=== PATIENT | female | born 1955 | race Caucasian/White ===

== ENCOUNTER 2021-10-03 15:00 | Inpatient (IN) | payer SELFPAY ==
[~2021-10-03] VITALS: Ht 162.6 cm; Wt 88.9 kg
[2021-10-03 15:40] LABS: BASOPHILS % 0.2 % (0.0-2.0); EOSINOPHILS % 1.3 % (0.0-5.0); HEMATOCRIT. 31.1 % (36.0-48.0); LYMPHOCYTES % 9.4 % (20.0-50.0); MEAN CORPUSCULAR HEMOGLOBIN 27.4 pg (28.0-32.0); MEAN CORPUSCULAR VOLUME 85.1 fL (81.0-99.0); MEAN PLATELET VOLUME 8.7 fl (7.4-10.4); MONOCYTES % 6.2 % (2.0-8.0); NEUTROPHILS % 82.9 % (40.0-76.0); PLATELET 176 x1000/uL (130-400); RED BLOOD CELL COUNT 3.65 mill/uL (4.2-5.4); RED CELL DISTRIBUTION WIDTH 14.5 % (11.6-14.6)
[2021-10-03 15:47] LABS: CHLORIDE 117 mEq/L (98-107)
[2021-10-03 15:57] LABS: ETHANOL BLOOD < 10 mg/dL
[2021-10-03] MEDS ORDERED: ASPIRIN 325MG TABLET PO ONE (16:00)
[2021-10-03 20:20] VITALS: BP 172/62
[2021-10-03] MEDS ORDERED: BUME1TAB8 MT (20:53)
[2021-10-03] MEDS ORDERED: ISOS10TA2 MT (20:53)
[2021-10-03] MEDS ORDERED: LOSA25TA26 MT (20:53)
[2021-10-03] MEDS ORDERED: ASPI-1160 MT (20:53)
[2021-10-03] MEDS ORDERED: CHOL400D7 PO (20:53)
[2021-10-03] MEDS ORDERED: HYDR-4135 MT (20:53)
[2021-10-03] MEDS ORDERED: DEXTROSE 50% WATER 50ML SYRINGE IV PRN (22:15)
[2021-10-03 23:21] LABS: CLARITY URINE CLEAR (CLEAR); COLOR URINE YELLOW (YELLOW); KETONES URINE NEGATIVE (NEGATIVE); LEUKOCYTE ESTERASE URINE NEGATIVE (NEGATIVE); NITRITE URINE NEGATIVE (NEGATIVE); OCCULT BLOOD URINE NEGATIVE (NEGATIVE); PH URINE 5.5 (4.5-8.0); PROTEIN URINE 4+ (NEGATIVE); SPECIFIC GRAVITY URINE 1.014 (1.005-1.030); UROBILINOGEN URINE 0.2 E.U./dL (0.2-1.0)
[2021-10-03 23:36] LABS: *AMPHETAMINES SCREEN URINE NEGATIVE (NEGATIVE); *BARBITURATES SCREEN URINE NEGATIVE (NEGATIVE); *BENZODIAZEPINES SCREEN URINE NEGATIVE (NEGATIVE); *COCAINE SCREEN URINE NEGATIVE (NEGATIVE); CANNABINOID URINE SCREEN NEGATIVE (NEGATIVE); METHADONE URINE SCREEN NEGATIVE (NEGATIVE); OPIATES URINE SCREEN NEGATIVE (NEGATIVE); PHENCYCLIDINE URINE SCREEN NEGATIVE (NEGATIVE)
[2021-10-03 23:56] VITALS: BP_SYST 171; BP_SYST 93; BP_DIAS 56; BP_DIAS 62
[2021-10-04 03:33] VITALS: BP 190/69
[2021-10-04] MEDS: BLOOD SUGAR DIAGNOSTIC STRIP TEST SCH ×4 (06:34→20:37)
[2021-10-04] MEDS ORDERED: INSULIN LISPRO 100 UNITS/ML SUBCUT SCH (07:50)
[2021-10-04 08:00] VITALS: BP 136/39
[2021-10-04] MEDS: INSULIN LISPRO 100 UNITS/ML SUBCUT SCH ×4 (09:49→20:47)
[2021-10-04] MEDS: HYDRALAZINE HCL 50MG TABLET PO SCH (09:51)
[2021-10-04] MEDS: ISOSORBIDE DINITRATE 10MG TABLET PO SCH ×3 (09:51→16:36)
[2021-10-04] MEDS: ASPIRIN 81MG TABLET PO SCH (09:52)
[2021-10-04] MEDS: BUMETANIDE 1MG TABLET PO SCH ×2 (09:52→16:35)
[2021-10-04] MEDS: LOSARTAN POTASSIUM 25 MG TABLET PO SCH (09:52)
[2021-10-04 12:00] VITALS: BP 162/71
[2021-10-04 16:00] VITALS: BP 141/56
[2021-10-04 20:25] VITALS: BP 133/48
[2021-10-04] MEDS: ATORVASTATIN CALCIUM 40MG TABLET PO SCH (20:47)
[2021-10-05 00:22] VITALS: BP 142/59
[2021-10-05 04:10] VITALS: BP 153/52
[2021-10-05] MEDS: BLOOD SUGAR DIAGNOSTIC STRIP TEST SCH ×4 (06:20→21:12)
[2021-10-05 07:42] VITALS: BP 150/59
[2021-10-05] MEDS: HYDRALAZINE HCL 50MG TABLET PO SCH ×4 (08:30→21:10)
[2021-10-05] MEDS: ASPIRIN 81MG TABLET PO SCH (08:31)
[2021-10-05] MEDS: LOSARTAN POTASSIUM 25 MG TABLET PO SCH (08:31)
[2021-10-05] MEDS: BUMETANIDE 1MG TABLET PO SCH ×2 (08:31→16:57)
[2021-10-05] MEDS: ISOSORBIDE DINITRATE 10MG TABLET PO SCH ×3 (08:31→16:57)
[2021-10-05] MEDS: INSULIN LISPRO 100 UNITS/ML SUBCUT SCH ×4 (08:33→21:12)
[2021-10-05 12:25] VITALS: BP 142/53
[2021-10-05 16:03] VITALS: BP 133/85
[2021-10-05] MEDS: ENOXAPARIN 40MG/0.4ML SYR SUBCUT SCH (16:56)
[2021-10-05 20:00] VITALS: BP 123/45
[2021-10-05] MEDS: ATORVASTATIN CALCIUM 40MG TABLET PO SCH (21:09)
[2021-10-06] VITALS: BP 159/51
[2021-10-06 04:00] VITALS: BP 189/63
[2021-10-06] MEDS: HYDRALAZINE HCL 50MG TABLET PO SCH ×2 (05:17→13:37)
[2021-10-06] MEDS: BLOOD SUGAR DIAGNOSTIC STRIP TEST SCH ×3 (06:23→16:40)
[2021-10-06 08:20] VITALS: BP 146/91
[2021-10-06] MEDS: ISOSORBIDE DINITRATE 10MG TABLET PO SCH ×3 (08:42→16:14)
[2021-10-06] MEDS: ASPIRIN 81MG TABLET PO SCH (08:42)
[2021-10-06] MEDS: LOSARTAN POTASSIUM 25 MG TABLET PO SCH (08:42)
[2021-10-06] MEDS: BUMETANIDE 1MG TABLET PO SCH ×2 (08:43→16:14)
[2021-10-06] MEDS: INSULIN LISPRO 100 UNITS/ML SUBCUT SCH ×2 (08:44→13:42)
[2021-10-06 12:30] VITALS: BP 131/50
[2021-10-06 16:06] VITALS: BP 153/72
[2021-10-06] MEDS: ENOXAPARIN 40MG/0.4ML SYR SUBCUT SCH (16:15)
[2021-10-06 16:50] VITALS: BP 129/61
[2021-10-07] MEDS ORDERED: LOSARTAN POTASSIUM 50 MG TABLET PO SCH (09:00)
== END 2021-10-06 18:13 | disposition home or self-care (01) | DRG 45 ==
LOC: ER 15:00 → EDBEDREQ 16:50 → 6WST 18:14 → EDBEDREQ 18:19 → EDBEDREQTM 18:19 → EDBEDREQSVC 18:24
PROVIDERS: ADMIT Internal Medicine; ATTEND Internal Medicine
DX: I63.9 Cerebral infarction, unspecified (principal); I50.9 Heart failure, unspecified; E11.22 Type 2 diabetes mellitus with diabetic chronic kidney disease; I13.0 Hypertensive heart and chronic kidney disease with heart failure and stage 1 through stage 4 chronic kidney disease, or unspecified chronic kidney disease; G81.94 Hemiplegia, unspecified affecting left nondominant side; N18.9 Chronic kidney disease, unspecified; E78.5 Hyperlipidemia, unspecified; R63.5 Abnormal weight gain; Z68.33 Body mass index [BMI] 33.0-33.9, adult; Z88.8 Allergy status to other drugs, medicaments and biological substances
CPT/HCPCS: 36415; 70551; 71045; 80053; 80061; 80305; 80320; 81003; 82962; 83036; 84484; 85025; 93005; 93880; 97162; 97166; 97530; 99291; J1650; J1815; G0480